=== PATIENT | female | born 1975 | race Two or more races ===

== ENCOUNTER 2017-06-06 02:08 | Emergency (ER) | payer MEDICAID ==
[~2017-06-06] VITALS: Ht 160 cm; Wt 81.6 kg
[~2017-06-06 02:08] MED LIST: AMOXICILLIN500 MG PO; APAP/HYDROCODON1 T13 PO; CLINDAMYCIN HC300 MG PO; COL100 PO; LAC PO; LEVAQUIN750 MG PO; MOTRIN800 MG PO; PRILOSEC40 MG PO; PROMETHAZINE HY25 M1 PO
[2017-06-06 02:21] VITALS: Ht 160 cm; Wt 81.6 kg
[2017-06-06 04:04] LABS: BASOPHIL % 0.4 % (0-2); PLATELET COUNT 243 x10^3mcL (130-400); RED CELL DISTRIBUTION WIDTH 14.4 % (11.5-14.5)
[2017-06-06 04:18] LABS: CALCIUM 8.6 mg/dL (8.5-10.1); CARBON DIOXIDE 22.4 mmol/L (21-32); CHLORIDE SERUM 103 mmol/L (98-107); CREATININE SERUM 0.8 mg/dL (0.6-1.0); GFR1 > 60 mL/min; GLUCOSE SERUM 117 mg/dL (74-106); POTASSIUM SERUM 3.7 mmol/L (3.5-5.1); SODIUM SERUM 138 mmol/L (136-145)
[2017-06-06 04:29] LABS: ALBUMIN 3.4 g/dL (3.4-5.0); ALKALINE PHOSPHATASE 66 U/L (46-116); ALT/SGPT 31 U/L (14-59); AST/SGOT 29 U/L (15-37); BILIRUBIN TOTAL 0.25 mg/dL (0.20-1.00); LIPASE 152 IU/L (73-393); TOTAL PROTEIN, SERUM 7.4 g/dL (6.4-8.2)
[2017-06-06 06:41] VITALS: BP 107/63
== END 2017-06-06 06:41 | disposition home or self-care (01) ==
LOC: ED 02:08
PROVIDERS: Emergency Medicine
DX: K63.89 Other specified diseases of intestine (principal)
CPT/HCPCS: J1170; J2405; J2543; J7030